=== PATIENT | female | born 1990 | race Caucasian/White ===

== ENCOUNTER 2022-01-31 12:35 | Emergency (ER) | payer OTHER, BC, SELFPAY ==
[2022-01-31 13:05] VITALS: BP 123/82; PULSE 76; RESP 18; TEMP 36.6; O2SAT 98; BMI 27.5
--- NOTE | 2022-01-31 13:38 | EXP.UTC ---
Discharge Plan Prescriptions Prescriptions: No Action vit-iron fum-folic ac 27 mg iron- 0.8 mg tablet 1 tab PO QDAY levonorgestrel [Mirena] 20 mcg/24 hr (5 years) intrauterine device 1 insert INTRAUTERI ONCE metoclopramide HCl [Reglan] 5 mg tablet 5 mg PO QID Referrals Follow up/Referrals: Provider,Referral, MD [Primary Care Provider] - See instructions Activity Restrictions/Add. Instructions Additional Instructions/Restrictions: You have been diagnosed with a head injury. The symptoms associated with a head injury may vary. This may impact your ability to partake in normal daily activities. It is important you get plenty of rest and do not engage in physically demanding activities until your doctor clears you to do so. The following instructions are guidelines for convalescence. You should not be left alone. Have a relative or friend stay with you until they feel as though you're back to normal. Do not drink alcoholic beverages. Avoid strenuous activities. No heavy lifting, bending, or straining. Do not drive or operate heavy machinery until your doctor clears you to do so. Initially you may experience mild headaches, mild depression, difficulty concentrating, or dizziness. You may also experience nausea. These symptoms can last days to weeks. Make sure to wake up every couple of hours and ask simple question Call your doctor immediately or return to the emergency department if you experiencing any of the following: Persistent nausea or vomiting. Increased confusion, drowsiness or changed in your level consciousness. Increased dizziness trouble walking or staggering. Seizures or convulsions, or weakness in an arm or leg. Worsening headache. Clear or blood tinged drainage from your ears or nose. Double vision or difficulty with your eyesight. Follow up with your Family Doctor or straight to ER if an life threatening symptoms or symptoms discussed in the [facility] Clinical Impressions Clinical Impression: Closed head injury Stand Alone Forms Stand Alone Forms: Work/School Release Instructions Patient Instructions: DI for Closed Head Injury, Closed Head Injury, DI for Concussion Discharge ED Provider: Abbey Rudolph [facility] [place] General Stated complaint: [id number] fall,knot on head Mode of Arrival: Ambulatory Source of Information: Patient Limitations: No Limitations Time Seen by Provider: 01/31/22 13:38 Description of Symptoms (Recalled from Triage Doc. by RN): PATIENT STATES SHE WAS AT WORK AND FELL OFF A WORK TRUCK AND HIT HER HEAD TODAY. DENIES HEADACHE, LOC, NAUSEA, CONFUSION, AND VISION CHANGES. 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 States that she was wearing a hard hat but they made her come get looked at due to knot on the left side of her head States denies LOC, Denies vision trouble, denies headache Denies N/V States that she immediately got up after falling and denies any other injury Related Data Home Medications Medication Instructions Recorded Confirmed levonorgestrel 20 mcg/24 hours (8 1 insert intrauterine ONCE 03/14/17 yrs) 52 mg intrauterine device (Mirena) metoclopramide HCl 5 mg tablet 5 mg PO QID 03/14/17 (Reglan) vitamins-iron fumarate 27 1 tab PO QDAY 03/14/17 mg iron-folic acid 0.8 mg tablet Allergies Allergy/AdvReac Type Severity Reaction Status Date / Time Penicillins Allergy Severe S-SWELLS-OR Unverified 01/31/17 14:51 AL/THROAT venom-honey bee Allergy Severe S-SWELLS-OR Unverified 01/31/17 14:51 [bee venom (honey bee)] AL/THROAT Worker's Comp Is this a Worker's Comp case?: No [facility] Disclaimer:
[2022-01-31 13:50] VITALS: BP 123/82; PULSE 76; RESP 18; TEMP 36.6; O2SAT 98
== END 2022-01-31 13:53 | disposition home or self-care (01) ==
PROVIDERS: Emergency Provider Nurse Practitioner
DX: S09.90XA Unspecified injury of head, initial encounter (principal); W17.89XA Other fall from one level to another, initial encounter; Y99.0 Civilian activity done for income or pay
CPT/HCPCS: 99212; G0463

== ENCOUNTER 2023-04-18 21:17 | Emergency (ER) | payer SELFPAY ==
[2023-04-18 21:18] VITALS: BP 124/84; PULSE 67; RESP 18; TEMP 36.6; O2SAT 98; BMI 25.1
--- NOTE | 2023-04-18 21:45 | HMH.EDGENADL ---
Discharge Plan Disposition Patient Disposition: Home, Self-Care Condition: Good Prescriptions Prescriptions: New ketorolac 10 mg tablet 10 mg PO Q8H PRN (Reason: pain) 3 Days Qty: 10 0RF Referrals Follow up/Referrals: Denny Amador DO [Staff Physician] - See instructions Provider,Referral, [Primary Care Provider] - See instructions Activity Restrictions/Add. Instructions Additional Instructions/Restrictions: Follow-up with PCP if neck/lymph no tenderness continues worsens or changes. Return to the emergency department for any significant change in level of consciousness or or alertness as needed Clinical Impressions Clinical Impression: Acute lymphadenitis of head Discharge ED Provider: Sylvia Velazquez General Adult HPI <DEL Squires - Last Filed: 04/18/23 22:56> General Chief complaint: Dizziness Stated complaint: neck pain, VELAZQUEZ Time Seen by Provider: 04/18/23 21:45 Mode of Arrival: Ambulatory Source of Information: Patient Limitations: No Limitations Description of Symptoms (Recalled from ER Triage Doc. by RN): Pt woke up on Monday with a stiff neck that has now resolved but she is concerned about new onset of dizziness and headache on left side of her head associated with severe nausea. Denies any recent injury only a fall 2 yrs ago that causes reccuring headaches. History of Present Illness HPI narrative: Patient woke up Monday with stiff neck and denies any provoking injury or trauma. Patient has no other complaints including no chest pain no visual changes no headache no sensory changes no nuchal rigidity no nausea vomiting diarrhea fever chills hemoptysis pharyngitis hematochezia melena. Related Data Previous Rx's Medication Instructions Recorded ketorolac 10 mg tablet 10 mg PO Q8H PRN pain 3 days #10 04/18/23 tabs Allergies Allergy/AdvReac Type Severity Reaction Status Date / Time Penicillins Allergy Severe S-SWELLS-OR Verified 04/18/23 22:23 AL/THROAT venom-honey bee Allergy Severe S-SWELLS-OR Verified 04/18/23 22:23 [bee venom (honey bee)] AL/THROAT PFSH <DEL Squires - Last Filed: 04/18/23 22:56> PFSH Disclaimer: The information contained in this section may have been updated after the patient was seen, as this information can be updated by other users. Surgical History (Updated 01/31/22 @ 13:14 by Mirtha Ceja RN) Total knee replacement status Social History (Updated 01/31/22 @ 13:49 by Abbey Rudolph APRN) Smoking Status: Current every day smoker alcohol intake: never current occupational status: other Travel in the last 8 weeks: None <DEL Squires - Last Filed: 04/18/23 22:56> ROS Obtained: Yes Systems reviewed as appropriate & no additional complaints except as documented Physical Exam <DEL Squires - Last Filed: 04/18/23 22:56> General General appearance: alert and in no apparent distress Head Head exam: atraumatic and normal inspection Eye Eye exam: Present normal appearance, PERRL and EOMI ENT ENT exam: Present normal exam, normal oropharynx and mucous membranes moist Neck Neck exam: Present normal inspection, trachea midline, tenderness (Patient is tender along the left cervical latissimus with palpable tender left-sided posterior chain lymph nodes) and lymphadenopathy; Absent full ROM (Tender range of motion on the left side) or meningismus Chest Chest inspection: Present normal inspection and symmetric chest wall rise Respiratory Respiratory exam: Present normal lung sounds bilaterally; Absent respiratory distress Cardiovascular Cardiovascular exam: Present regular rate, normal rhythm, normal heart sounds and +S2 Abdominal Exam Abdominal exam: Present soft and normal bowel sounds; Absent tenderness Extremities Exam Extremities exam: Present normal inspection and full ROM Neurological Exam Neurological exam: Present alert, oriented X3 and CN II-XII intact Psychiatric Psychiatric exam: Present normal affect and normal mood Skin Skin exam: Present warm, dry and normal color Lymphatic Lymphatic Findings: no adenopathy Medical Decision Making <DEL Squires - Last Filed: 04/18/23 22:56> Medical Records Medical records reviewed: Yes I reviewed the patient's medical records. Chris Inquiry Pt receiving controlled substance: No Vital Signs: 04/18/23 21:18 04/18/23 22:00 04/18/23 23:18 Temperature 97.9 F 97.9 F Temperature Source Oral Oral Pulse Rate 47 L 59 L Pulse Rate [Left] 67 Respiratory Rate 18 18 Blood Pressure 117/80 127/80 Blood Pressure [Right Arm] 124/84 Blood Pressure Mean [Right Arm] 97 Blood Pressure Source Automatic Cuff Blood Pressure Source [Right Arm] Automatic Cuff Blood Pressure Position Sitting Blood Pressure Position [Right Arm] Sitting 02 Sat by Pulse Oximetry 98 98 Oxygen Delivery Method Room Air Room Air Lab Data Lab results reviewed: Yes I reviewed the patient's lab results. Lab Results 04/18/23 22:10: WBC 7.2, RBC 4.17 L, Hgb 13.2, Hct 40.3, MCV 96.6, MCH 31.8 H, MCHC 32.9, RDW 13.3, Plt Count 352, MPV 8.5, Neut % (Auto) 53.7, Lymph % (Auto) 39.7, Mchenry % (Auto) 4.7, Eos % (Auto) 1.4, Baso % (Auto) 0.6, Neut # (Auto) 3.8, Lymph # (Auto) 2.8, Mchenry # (Auto) 0.3, Eos # (Auto) 0.1, Baso # (Auto) 0.0 04/18/23 22:29: SARS-CoV-2 (PCR) Not detected, Influenza A Untype (PCR) Not detected, Influenza Type B (PCR) Not detected, Group A Strep Rapid Negative 04/18/23 22:10 Orders (Tests/Meds): ED MEDICATIONS Discontinued Medications Generic Name Dose Route Start Last Admin Trade Name Freq PRN Reason Stop Dose Admin Ketorolac Tromethamine 30 mg 04/18/23 21:56 04/18/23 22:39 Ketorolac 30mg/Ml Vial IM 04/18/23 21:57 Not Given ONCE ONE Ketorolac Tromethamine 30 mg 04/18/23 22:27 04/18/23 22:33 Ketorolac 30mg/Ml Vial IV 04/18/23 22:28 30 mg ONCE ONE Administration ORDERS Category Date Time Status CBC w/Auto Diff [Complete Blood Count Auto Diff] Stat Lab 04/18/23 22:10 Completed Rapid PCR Covid and Flu A/B Stat Lab 04/18/23 22:29 Completed Strep Scrn Group A (Rapid) Stat Lab 04/18/23 22:29 Completed Strep Screen Confirmation Stat Micro 04/18/23 22:29 Received Medical Decision Narrative: In summary patient is a 33-year-old female who presents to the emergency department for evaluation of left-sided neck pain. Patient is hemodynamically stable and afebrile. Physical exam is only remarkable for tender and palpable posterior chain lymph nodes on the left. The remainder of the physical exam is unremarkable and nonfocal Differential diagnosis includes viral or bacterial infection, histoplasmosis from cats, deep space infection of the neck etc. Initial workup will be conducted with hematologic labs. Initial interventions include Toradol as patient took a gram and a half of Tylenol prior to coming to the ER. Initial workup reviewed by me shows negative strep. Upon repeat evaluation patient had a small amount resolution of her neck pain after ministration of Toradol IV. Given this appropriate for discharge home with a prescription for Toradol called in to her pharmacy. Patient given contact information for Dr. Amador for PCP. Patient instructed to return to ER for any change or worsening of her symptoms. Patient verbalized understanding and agreement <Sylvia Velazquez, - Last Filed: 04/18/23 23:54> Vital Signs: 04/18/23 21:18 04/18/23 22:00 04/18/23 23:18 Temperature 97.9 F 97.9 F Temperature Source Oral Oral Pulse Rate 47 L 59 L Pulse Rate [Left] 67 Respiratory Rate 18 18 Blood Pressure 117/80 127/80 Blood Pressure [Right Arm] 124/84 Blood Pressure Mean [Right Arm] 97 Blood Pressure Source Automatic Cuff Blood Pressure Source [Right Arm] Automatic Cuff Blood Pressure Position Sitting Blood Pressure Position [Right Arm] Sitting 02 Sat by Pulse Oximetry 98 98 Oxygen Delivery Method Room Air Room Air Lab Data Lab Results 04/18/23 22:10: WBC 7.2, RBC 4.17 L, Hgb 13.2, Hct 40.3, MCV 96.6, MCH 31.8 H, MCHC 32.9, RDW 13.3, Plt Count 352, MPV 8.5, Neut % (Auto) 53.7, Lymph % (Auto) 39.7, Mchenry % (Auto) 4.7, Eos % (Auto) 1.4, Baso % (Auto) 0.6, Neut # (Auto) 3.8, Lymph # (Auto) 2.8, Mchenry # (Auto) 0.3, Eos # (Auto) 0.1, Baso # (Auto) 0.0 04/18/23 22:29: SARS-CoV-2 (PCR) Not detected, Influenza A Untype (PCR) Not detected, Influenza Type B (PCR) Not detected, Group A Strep Rapid Negative Orders (Tests/Meds): ED MEDICATIONS Discontinued Medications Generic Name Dose Route Start Last Admin Trade Name Pablo PRN Reason Stop Dose Admin Ketorolac Tromethamine 30 mg 04/18/23 21:56 04/18/23 22:39 Ketorolac 30mg/Ml Vial IM 04/18/23 21:57 Not Given ONCE ONE Ketorolac Tromethamine 30 mg 04/18/23 22:27 04/18/23 22:33 Ketorolac 30mg/Ml Vial IV 04/18/23 22:28 30 mg ONCE ONE Administration ORDERS Category Date Time Status CBC w/Auto Diff [Complete Blood Count Auto Diff] Stat Lab 04/18/23 22:10 Completed Rapid PCR Covid and Flu A/B Stat Lab 04/18/23 22:29 Completed Strep Scrn Group A (Rapid) Stat Lab 04/18/23 22:29 Completed Strep Screen Confirmation Stat Micro 04/18/23 22:29 Received Medical Decision Narrative: In summary patient is a 33-year-old female who presents to the emergency department for evaluation of left-sided neck pain. Patient is hemodynamically stable and afebrile. Physical exam is only remarkable for tender and palpable posterior chain lymph nodes on the left. The remainder of the physical exam is unremarkable and nonfocal Differential diagnosis includes viral or bacterial infection, histoplasmosis from cats, deep space infection of the neck etc. Initial workup will be conducted with hematologic labs. Initial interventions include Toradol as patient took a gram and a half of Tylenol prior to coming to the ER. Initial workup reviewed by me shows negative strep. Upon repeat evaluation patient had a small amount resolution of her neck pain after ministration of Toradol IV. Given this appropriate for discharge home with a prescription for Toradol called in to her pharmacy. Patient given contact information for Dr. Amador for PCP. Patient instructed to return to ER for any change or worsening of her symptoms. Patient verbalized understanding and agreement I was consulted by the STEFAN, and we discussed the complexity of the problems being addressed. I approved the treatment and management plan for this patient's care in the emergency department, thus performing a substantive portion of the medical decision making. Patient well-appearing on exam and neurologically intact with no meningismus. Deemed to be appropriate for discharge. Sylvia Velazquez, Critical Care <DEL Squires - Last Filed: 04/18/23 22:56> Critical Care Time Critical Care Time: No
[2023-04-18 22:00] VITALS: BP 117/80; PULSE 47; O2SAT 98
[2023-04-18] MEDS: KETOROLAC 30MG/ML VIAL 30 MG IV (22:33)
[2023-04-18 22:37] LABS: Coronavirus 19, PCR Not Detected (NotDetected); Influenza A, PCR Not Detected (NotDetected); Influenza B, PCR Not Detected (NotDetected)
[2023-04-18 22:45] LABS: Strep Scrn Group A (Rapid) Negative (Negative)
[2023-04-18 23:05] LABS: Basophils % 0.6 % (0.1-2.0); Eosinophils # 0.1 K/mm3 (0.0-0.4); Eosinophils % 1.4 % (0.1-12.0); Hematocrit 40.3 % (37.0-47.0); Hemoglobin 13.2 g/dL (12.2-16.2); Lymphocytes # 2.8 K/mm3 (0.7-4.5); Lymphocytes % 39.7 % (10-50); Mean Corpuscular HGB Conc 32.9 g/dL (31.8-35.4); Mean Corpuscular Hemoglobin 31.8 pg (27.0-31.2); Mean Corpuscular Volume 96.6 fl (81-99); Mean Platelet Volume 8.5 fl (7.4-10.4); Monocytes # 0.3 K/mm3 (0.1-1.0); Monocytes % 4.7 % (1.7-9.3); Neutrophils # 3.8 K/mm3 (1.8-7.8); Neutrophils % 53.7 % (37.0-80.0); Platelet Count 352 K/mm3 (142-424); Red Blood Count 4.17 M/mm3 (4.20-5.40); Red Cell Distribution Width 13.3 % (11.5-17.5); White Blood Count 7.2 K/mm3 (4.8-10.8)
[2023-04-18 23:18] VITALS: BP 127/80; PULSE 59; RESP 18; TEMP 36.6; O2SAT 98
== END 2023-04-18 23:20 | disposition home or self-care (01) ==
PROVIDERS: Physician Assistant; Emergency Provider Emergency Medicine
DX: L04.0 Acute lymphadenitis of face, head and neck (principal); M54.2 Cervicalgia; F17.210 Nicotine dependence, cigarettes, uncomplicated
CPT/HCPCS: 85025; 87430; 87636; 96372; 96374; 99284

== ENCOUNTER 2023-10-03 21:00 | Emergency (ER) | payer BC, SELFPAY ==
[2023-10-03 21:02] VITALS: BP 126/84; PULSE 70; RESP 16; TEMP 37.1; O2SAT 100; BMI 27.1
--- NOTE | 2023-10-03 21:55 | HMH.EDGENADL ---
Discharge Plan Disposition Patient Disposition: Home, Self-Care Condition: Good Prescriptions Prescriptions: New naproxen 500 mg tablet 500 mg PO BID Qty: 20 0RF methocarbamol 500 mg tablet 500 mg PO Q8H PRN (Reason: pain) Qty: 20 0RF No Action ketorolac 10 mg tablet 10 mg PO Q8H PRN (Reason: pain) 3 Days Qty: 10 0RF Referrals Follow up/Referrals: Danis Brooks DO [Staff Physician] - See instructions Provider,Referral, [Primary Care Provider] - See instructions Activity Restrictions/Add. Instructions Additional Instructions/Restrictions: You were evaluated in the emergency department today. Please pick up man your prescriptions at the pharmacy and take them as prescribed. Follow-up closely with primary care as well as with orthopedics. Return to the emergency department for new or worsening symptoms Clinical Impressions Clinical Impression: Arm pain, left Print Language Print Language: Citizen Of [place] Discharge ED Provider: Sylvia Velazquez General Adult HPI General Chief complaint: PAIN Stated complaint: Left arm pain X3 weeks,no injury Time Seen by Provider: 10/03/23 21:06 Mode of Arrival: Ambulatory Source of Information: Patient Limitations: No Limitations Description of Symptoms (Recalled from ER Triage Doc. by RN): Patient presents to ED with Left arm below the elbow to fingertips numb intermittently. Patient denies any injury, states this has been going on for 3 weeks. Patient rates pain 9/10 at this time. History of Present Illness HPI narrative: This patient is a 33-year-old female who denies significant past medical history presenting to the emergency department for atraumatic left arm pain. She states that she feels a shooting pain going from her elbow down her left arm. No known falls or injuries. She states that intermittently her fingers are numb and tingly, but it gets better when she holds her hand up close to her chest. She is been taking Tylenol with some improvement but the pain continues to come back Related Data Previous Rx's ?Medication ?Instructions ?Recorded ketorolac 10 mg tablet 10 mg PO Q8H PRN pain 3 days #10 04/18/23 tabs methocarbamol 500 mg tablet 500 mg PO Q8H PRN pain #20 tabs 10/03/23 naproxen 500 mg tablet 500 mg PO BID #20 tabs 10/03/23 Allergies Allergy/AdvReac Type Severity Reaction Status Date / Time Penicillins Allergy Severe S-SWELLS-OR Verified 04/18/23 22:23 AL/THROAT venom-honey bee Allergy Severe S-SWELLS-OR Verified 04/18/23 22:23 [bee venom (honey bee)] AL/THROAT PFSH [facility] Disclaimer: The information contained in this section may have been updated after the patient was seen, as this information can be updated by other users. Surgical History Total knee replacement status Social History Smoking Status: Current every day smoker alcohol intake: never current occupational status: other Travel in the last 8 weeks: None ROS Obtained: Yes All systems reviewed & no additional complaints except as documented Physical Exam General General appearance: alert and in no apparent distress Head Head exam: atraumatic and normocephalic Eye Eye exam: Present normal appearance, PERRL and EOMI ENT ENT exam: Present normal exam, normal oropharynx, mucous membranes moist and normal external ear exam Neck Neck exam: Present normal inspection, full ROM and trachea midline; Absent tenderness Chest Chest inspection: Present normal inspection and symmetric chest wall rise; Absent tenderness Respiratory Respiratory exam: Present normal lung sounds bilaterally; Absent respiratory distress, wheezes, stridor or accessory muscle use Cardiovascular Cardiovascular exam: Present regular rate and normal rhythm Abdominal Exam Abdominal exam: Present soft; Absent distention, tenderness or guarding Extremities Exam Extremities exam: Present normal inspection, full ROM and normal capillary refill; Absent tenderness or edema Back Exam Back exam: Present normal inspection and full ROM; Absent tenderness Neurological Exam Neurological exam: Present alert, oriented X3, CN II-XII intact and normal gait; Absent motor sensory deficit Psychiatric Psychiatric exam: Present normal affect and normal mood Skin Skin exam: Present warm and dry Medical Decision Making Medical Records Medical records reviewed: Yes I reviewed the patient's medical records. Chris Inquiry Pt receiving controlled substance: No Vital Signs: 10/03/23 21:02 Temperature 98.7 F Temperature Source Oral Pulse Rate [Right Radial] 70 Respiratory Rate 16 Blood Pressure [Right Arm] 126/84 Blood Pressure Mean [Right Arm] 98 Blood Pressure Source [Right Arm] Automatic Cuff Blood Pressure Position [Right Arm] Supine 02 Sat by Pulse Oximetry 100 Oxygen Delivery Method Room Air Lab Data Lab results reviewed: Yes I reviewed the patient's lab results. Orders (Tests/Meds): ED MEDICATIONS Generic Name Dose Route Start Last Admin Trade Name Pablo PRN Reason Stop Dose Admin Ketorolac Tromethamine 30 mg 10/03/23 21:53 Ketorolac 30mg/Ml Vial IM 10/03/23 21:54 ONCE ONE Lidocaine 1 each 10/03/23 21:53 Lidocaine 5% Transdermal Patch TP 10/03/23 21:54 ONCE ONE Methocarbamol 500 mg 10/03/23 21:53 Methocarbamol 500mg Tablet PO 10/03/23 21:54 ONCE ONE Medical Decision Narrative: In summary, this patient is a 33-year-old female presenting to the Emergency Department for evaluation of atraumatic left arm pain. Differential diagnoses considered include but are not limited to cervical radiculopathy, peripheral neuropathy, musculoskeletal strain/sprain, tendinitis. Ruling out the most morbid conditions drove assessment. On exam, the patient is sitting upright in chair in no acute distress with no appreciable bony abnormalities on exam. She has full intact range of motion and is neurovascularly intact. I feel she likely has radicular pain, but I do not feel that CT or x-ray in the emergency department would global climate change analyst, as it likely would not show any significant bony abnormality. Ultimately, I feel that she is appropriate for discharge home with close follow-up with primary care/orthopedics. She was given Toradol, Lidoderm patch, Robaxin here in the emergency department as well as prescriptions for naproxen and Robaxin to take at home. Patient was discharged after all questions were answered with instructions for close outpatient follow-up and strict return precautions Critical Care Critical Care Time Critical Care Time: No
[2023-10-03] MEDS: METHOCARBAMOL 500MG TABLET 500 MG PO (21:56)
[2023-10-03] MEDS: LIDOCAINE 5% TRANSDERMAL PATCH 1 EACH TP (21:56)
[2023-10-03] MEDS: KETOROLAC 30MG/ML VIAL 30 MG IM (21:57)
[2023-10-03 21:58] VITALS: BP 122/84; PULSE 71; RESP 18; TEMP 36.8; O2SAT 98
== END 2023-10-03 21:59 | disposition home or self-care (01) ==
PROVIDERS: Emergency Provider Emergency Medicine
DX: M79.602 Pain in left arm (principal)
CPT/HCPCS: 96372; 99283; J1885

== ENCOUNTER 2023-10-17 06:59 | Outpatient (CLI) | payer BC, SELFPAY ==
--- NOTE | 2023-10-17 07:05 | XR_ITS ---
FINAL REPORT CLINICAL HISTORY: left hand pain COMPARISON: None FINDINGS: LEFT HAND: 3 views of the left hand were obtained. There is no acute fracture or dislocation. Visualized joint spaces are normally aligned. Soft tissues are unremarkable. IMPRESSION: No acute bony abnormality identified. Reviewed, Interpreted and Dictated by Silverio Villeda III, MD Transcribed by Citlalli Chapman Authenticated and . [facility]
--- NOTE | 2023-10-17 07:05 | XR_ITS ---
FINAL REPORT CLINICAL HISTORY: left elbow pain COMPARISON: None FINDINGS: LEFT ELBOW: 3 images of the left elbow were obtained. There is no evidence of fracture or dislocation. The joint spaces are intact. There is no soft tissue abnormality identified. IMPRESSION: No acute bony abnormality. Reviewed, Interpreted and Dictated by Silverio Villeda III, MD Transcribed by Citlalli Chapman Authenticated and [facility]
--- NOTE | 2023-10-17 07:05 | XR_ITS ---
FINAL REPORT CLINICAL HISTORY: left wrist pain COMPARISON: None FINDINGS: LEFT WRIST Three views demonstrate no acute fracture or dislocation. The visualized joint spaces are normally aligned. The soft tissues are unremarkable. IMPRESSION: No acute bony abnormality. Reviewed, Interpreted and Dictated by Silverio Villeda III, MD Transcribed by Citlalli Chapman Authenticated and [facility]
== END 2023-10-17 23:59 | disposition home or self-care (01) ==
LOC: RAD 07:00
PROVIDERS: Visit Provider Orthopaedic Surgery
DX: M79.602 Pain in left arm (principal)
CPT/HCPCS: 73080; 73110; 73130

== ENCOUNTER 2025-01-30 16:22 | Emergency (ER) | payer OTHER, SELFPAY ==
[2025-01-30 16:25] VITALS: BP 120/84; PULSE 102; RESP 20; TEMP 38; O2SAT 96; BMI 30.8
--- NOTE | 2025-01-30 16:37 | ED_ITS ---
<Statement entered by Mony Muro DO - 01/30/25 17:56> I was consulted by the STEFAN, and we discussed the complexity of problems being addressed. I approve the treatment and management plan for this patient's care in the emergency department, thus performing a substantial portion of the medical decision making. Mony Muro DO Discharge Plan Disposition Patient Disposition: Home, Self-Care Condition: Good Prescriptions Prescriptions: No Action methocarbamol 500 mg tablet 500 mg PO Q8H PRN (Reason: muscle spasm) Qty: 30 0RF ketorolac 10 mg tablet 10 mg PO Q8H PRN (Reason: pain) 3 Days Qty: 10 0RF naproxen 500 mg tablet 500 mg PO BID Qty: 20 0RF Referrals Follow up/Referrals: Provider,Referral, MD [Primary Care Provider, Medical] - See instructions Activity Restrictions/Add. Instructions Additional Instructions/Restrictions: You were evaluated on an emergency basis. It is very important that you follow- up with your primary care provider and any specialist who we discussed within the next 2 days in order to better assess your health more comprehensively. For example, incidental findings on imaging or laboratory results that were performed today may be discovered, which do not require immediate medical care, but may impact your health in the future. If your symptoms worsen or persist, please return to the emergency department immediately for reassessment. Take all medications as prescribed. In queue for allowing me to participate in your health care, and I hope you feel better soon. Clinical Impressions Clinical Impression: COVID-19 Stand Alone Forms Stand Alone Forms: Work/School Release Instructions Patient Instructions: COVID-19 Print Language Print Language: Amharic Discharge ED Provider: Mony Muro General Adult HPI <Melissa Gilman - Last Filed: 01/30/25 17:30> General Chief complaint: PAIN Stated complaint: headache, Left arm and right hip pain Time Seen by Provider: 01/30/25 16:37 History of Present Illness HPI narrative: 34-year-old female presents emergency department complaints of pain to her left arm from the elbow down as well as pain to her right leg from the hip down. She denies any recent injury to the area. She does state that she has ongoing paresthesias of the left arm she also reports that she has had a headache with generalized malaise. Related Data Previous Rx's ?Medication ?Instructions ?Recorded ketorolac 10 mg tablet 10 mg PO Q8H PRN pain 3 days #10 04/18/23 tabs naproxen 500 mg tablet 500 mg PO BID #20 tabs 10/02 methocarbamol 500 mg tablet 500 mg PO Q8H PRN muscle s pasm #30 10/17/23 tabs Allergies Allergy/AdvReac Type Severity Reaction Status Date / Time Penicillins Allergy Severe S-SWELLS-OR Verified 10/31/23 09:05 AL/THROAT venom-honey bee (bee venom Allergy Severe S-SWELLS-OR Verified 10/31/23 09:05 (honey bee)) AL/THROAT <Mony Muro DO - Last Filed: 01/30/25 17:55> History of Present Illness HPI narrative: 34-year-old female presents emergency department complaints of pain to her left arm from the elbow down as well as pain to her right leg from the hip down. She denies any recent injury to the area. She does state that she has ongoing paresthesias of the left arm which are not new. She also reports that she has had a headache with generalized malaise. [facility] <Melissajim Gilman - Last Filed: 01/30/25 17:30> [facility] Disclaimer: The information contained in this section may have been updated after the patient was seen, as this information can be updated by other users. Surgical History Total knee replacement status Social History Smoking Status: Current every day smoker alcohol intake: never current occupational status: other Travel in the last 8 weeks?: None Have you lived/traveled outside [place] in past 30 days?: No Contact w/someone who lives/traveled outside [place] past 30 days?: No Exposure to someone with infectious disease in past 14 days?: No Do you have a fever (greater than 100.4 F or 38 C)?: No Have you tested positive for COVID-19?: No Exposed to someone with COVID-19 in past 14 days?: No Do you have a sore throat?: No Do you have a cough?: No Do you have any weakness?: No Do you have any diarrhea?: No Are you experiencing any unusual bleeding?: No Do you have any muscle aches/pain?: No Do you have any abdominal pain?: No Are you experiencing loss of taste or smell?: No Other Medical History Have you received the Flu Vaccine for this season: No Have you received the Pneumonia Vaccine: Yes <Melissa Gilman - Last Filed: 01/30/25 17:30> ROS Obtained: Yes other Constitutional Constitutional: Reports body ache, Reports fever(s) and Reports malaise Musculoskeletal Musculoskeletal: Reports myalgias <Mony MuroDO - Last Filed: 01/30/25 17:55> ROS Obtained: Yes All systems reviewed & no additional complaints except as documented and Yes Systems reviewed as appropriate & no additional complaints except as documented Physical Exam <Melissa Gilman - Last Filed: 01/30/25 17:30> Narrative Physical exam: General: Awake, aware, in no acute distress HEENT: Normocephalic, no evidence of trauma CV: RRR, no murmurs, rubs, or gallops Pulm: CTA bilaterally with no rhonchi, rales, wheezes ABD: Nontender, no swelling, guarding, or rebound tenderness Psych, appropriate mood and affect Musculoskeletal: Sensations intact with 2+ pulses in all extremities. Patient with 5 out of 5 strength in all extremities as well patient does report tenderness on palpation of left hip and thigh. No ecchymosis, erythema, deformity or edema noted General General appearance: alert Respiratory Respiratory exam: Present normal lung sounds bilaterally Cardiovascular Cardiovascular exam: Present tachycardia Neurological Exam Neurological exam: Present alert <Monyenrique Muro - Last Filed: 01/30/25 17:55> Neurological Exam Neurological exam: Present oriented X3, CN II-XII intact and normal gait; Absent motor sensory deficit Medical Decision Making <Melissa Gilman - Last Filed: 01/30/25 17:30> Medical Records Screening: Per USPSTF and CDC recommendations, given the prevalence of disease in our region, it is our hospital?s policy to screen for HIV and viral Hepatitis for all patients aged 18 and over and those with ongoing risk factors. Chris Inquiry Pt receiving controlled substance: No Vital Signs: 01/30/25 16:25 01/30/25 16:45 01/30/25 17:37 Temperature 100.4 F H 98 F Temperature Source Oral Oral Pulse Rate 95 H 94 H Pulse Rate [Left Radial] 102 H Respiratory Rate 20 16 Blood Pressure 123/81 Blood Pressure [Right Arm] 120/84 Blood Pressure Mean [Right Arm] 96 Blood Pressure Source Automatic Cuff Blood Pressure Position Sitting 02 Sat by Pulse Oximetry 96 97 Oxygen Delivery Method Room Air Room Air Room Air Lab Data Lab Results 01/30/25 16:20: SARS-CoV-2 (PCR) Detected A, Influenza A Untype (PCR) Not detected, Influenza Type B (PCR) Not detected Orders (Tests/Meds): ED MEDICATIONS Discontinued Medications Generic Name Dose Route Start Last Admin Trade Name Pablo PRN Reason Stop Dose Admin Acetaminophen 1,000 mg 01/30/25 17:23 01/30/25 17:33 Acetaminophen 500mg Tab PO 01/30/25 17:24 1,000 mg ONCE ONE Administration Cyclobenzaprine HCl 10 mg 01/30/25 16:44 01/30/25 17:06 Cyclobenzaprine 10mg Tablet PO 01/30/25 16:45 10 mg ONCE ONE Administration Ibuprofen 800 mg 01/30/25 16:45 01/30/25 17:06 Ibuprofen 800 Mg Tablet PO 01/30/25 16:46 800 mg ONCE ONE Administration ORDERS Category Date Time Status Rapid PCR Covid and Flu A/B Stat Lab 01/30/25 16:20 Completed Medical Decision Narrative: Initial impression of presenting illness: 34-year-old female presents emergency department complaints of pain to her left arm from the elbow down and her right leg from the hip down. She denies any traumatic injury to the area. She also reports that she has a headache as well as generalized malaise. Patient last took Tylenol this morning. Patient reports she has ongoing paresthesias to her left arm. She has been seen numerous times for this was last treated with steroids which she states did improve her paresthesias. Differential diagnosis includes but is not limited to: Viral illness, musculoskeletal strain, dehydration, intracranial abnormality Patient arrives hemodynamically stable, afebrile, without respiratory distress with vital signs interpreted by myself. Initial physical exam unremarkable. Patient moving all extremities without difficulty. Sensations intact with 2+ pulses. Patient with 5 out of 5 strength in all extremities. No ecchymosis, erythema, edema, deformities noted to extremities. Patient was slightly tachycardic with a rate of 102 with a low-grade fever of 100.4. Initial diagnostic plan: COVID and flu swab, ibuprofen for pain and fever control, Flexeril for pain control Results from initial plan were reviewed and interpreted by myself, pertinent positives include: Patient's COVID test was positive, negative for flu. Interventions in the ED: Patient was given Tylenol, ibuprofen as well as Flexeril for pain control. Patient was made aware of the results and the findings, upon reevaluation patient has remained stable throughout stay, symptoms remained stable. Upon reevaluation patient is resting comfortably in her bed. Patient is tolerating p.o. without difficulty. Disposition: Reviewed findings today's workup with patient informed her that she was positive for COVID. We reviewed symptomatic treatment for viral illnesses including increase fluids and rest for the next several days as well as quarantining for 5 days from symptom onset. Encouraged her to continue with Tylenol and ibuprofen as needed for pain and fever control. Strict and her to return to the emergency department any new or worsening symptoms including uncontrolled fevers, inability to tolerate p.o., chest pain or shortness of breath. Patient is agreeable to plan of care. Patient made aware of findings and had a detailed discussion with symptomatic care and return precautions, patient voiced understanding. <Mony Muro, DO - Last Filed: 01/30/25 17:55> Vital Signs: 01/30/25 16:25 01/30/25 16:45 01/30/25 17:37 Temperature 100.4 F H 98 F Temperature Source Oral Oral Pulse Rate 95 H 94 H Pulse Rate [Left Radial] 102 H Respiratory Rate 20 16 Blood Pressure 123/81 Blood Pressure [Right Arm] 120/84 Blood Pressure Mean [Right Arm] 96 Blood Pressure Source Automatic Cuff Blood Pressure Position Sitting 02 Sat by Pulse Oximetry 96 97 Oxygen Delivery Method Room Air Room Air Room Air Lab Data Lab results reviewed: Yes I reviewed the patient's lab results. Lab Results 01/30/25 16:20: SARS-CoV-2 (PCR) Detected A, Influenza A Untype (PCR) Not detected, Influenza Type B (PCR) Not detected Orders (Tests/Meds): ED MEDICATIONS Discontinued Medications Generic Name Dose Route Start Last Admin Trade Name Freq PRN Reason Stop Dose Admin Acetaminophen 1,000 mg 01/30/25 17:23 01/30/25 17:33 Acetaminophen 500mg Tab PO 01/30/25 17:24 1,000 mg ONCE ONE Administration Cyclobenzaprine HCl 10 mg 01/30/25 16:44 01/30/25 17:06 Cyclobenzaprine 10mg Tablet PO 01/30/25 16:45 10 mg ONCE ONE Administration Ibuprofen 800 mg 01/30/25 16:45 01/30/25 17:06 Ibuprofen 800 Mg Tablet PO 01/30/25 16:46 800 mg ONCE ONE Administration ORDERS Category Date Time Status Rapid PCR Covid and Flu A/B Stat Lab 01/30/25 16:20 Completed Medical Decision Narrative: Initial impression of presenting illness: 34-year-old female presents emergency department complaints of pain to her left arm from the elbow down and her right leg from the hip down. She denies any traumatic injury to the area. She also reports that she has a headache as well as generalized malaise. Patient last took Tylenol this morning. Patient reports she has ongoing paresthesias to her left arm. She has been seen numerous times for this was last treated with steroids which she states did improve her paresthesias. Differential diagnosis includes but is not limited to: Viral illness, musculoskeletal strain, dehydration, intracranial abnormality Patient arrives hemodynamically stable, afebrile, without respiratory distress with vital signs interpreted by myself. Initial physical exam unremarkable. Patient moving all extremities without difficulty. Sensations intact with 2+ pulses. Patient with 5 out of 5 strength in all extremities. No ecchymosis, erythema, edema, deformities noted to extremities. Patient was slightly tachycardic with a rate of 102 with a low-grade fever of 100.4. Initial diagnostic plan: COVID and flu swab, ibuprofen for pain and fever control, Flexeril for pain control Results from initial plan were reviewed and interpreted by myself, pertinent positives include: Patient's COVID test was positive, negative for flu. Interventions in the ED: Patient was given Tylenol, ibuprofen as well as Flexeril for pain control. Patient was made aware of the results and the findings, upon reevaluation patient has remained stable throughout stay, symptoms remained stable. Upon reevaluation patient is resting comfortably in her bed. Patient is tolerating p.o. without difficulty. Disposition: Reviewed findings today's workup with patient informed her that she was positive for COVID. We reviewed symptomatic treatment for viral illnesses including increase fluids and rest for the next several days as well as quarantining for 5 days from symptom onset. Encouraged her to continue with T ylenol and ibuprofen as needed for pain and fever control. Strict and her to return to the emergency department any new or worsening symptoms including uncontrolled fevers, inability to tolerate p.o., chest pain or shortness of breath. Patient is agreeable to plan of care. Patient made aware of findings and had a detailed discussion with symptomatic care and return precautions, patient voiced understanding. Critical Care <Melissa Gilman - Last Filed: 01/30/25 17:30> Critical Care Time Critical Care Time: No
[2025-01-30 16:45] VITALS: PULSE 95; O2SAT 97
[2025-01-30 16:54] LABS: Influenza A, PCR Not Detected (NotDetected); Influenza B, PCR Not Detected (NotDetected)
[2025-01-30] MEDS: CYCLOBENZAPRINE 10MG TABLET 10 MG PO (17:06)
[2025-01-30] MEDS: IBUPROFEN 800 MG TABLET PO (17:06)
[2025-01-30 17:17] LABS: Coronavirus 19, PCR Detected (NotDetected)
[2025-01-30] MEDS: ACETAMINOPHEN 500MG TAB 1000 MG PO (17:33)
[2025-01-30 17:37] VITALS: BP 123/81; PULSE 94; RESP 16; TEMP 36.6; O2SAT 95
== END 2025-01-30 17:38 | disposition home or self-care (01) ==
PROVIDERS: Nurse Practitioner Family; Emergency Provider Student in an Organized Health Care Education/Training Program
DX: U07.1 COVID-19 (principal); R51.9 Headache, unspecified; R53.81 Other malaise
CPT/HCPCS: 87636; 99283